=== PATIENT | male | born 1945 | race Caucasian/White ===

== ENCOUNTER 2020-05-08 09:55 | Outpatient (CLI) | payer MEDICARE, MEDICAID, SELFPAY ==
--- NOTE | ~2020-05-08 | US_ITS ---
EXAMINATION: US aorta [facility] DATE: 05/08/2020 10:33 INDICATION: Abdominal aortic aneurysm. TECHNIQUE: Grayscale, color Doppler, and pulsed Doppler images of the aorta and common iliac arteries were obtained. COMPARISON: CT abdomen and pelvis 03/27/2018 FINDINGS: The aorta demonstrates a 3.3 cm fusiform infrarenal aortic aneurysm with stent graft. The right commo n iliac artery measures 1.3 cm. The left common iliac artery measures 1.3 cm. IMPRESSION: 1. 3.3 cm fusiform infrarenal aortic aneurysm with stent graft. Reviewed, dictated and finalized at location A. [employer]
== END 2020-05-08 09:56 | disposition home or self-care (01) ==
PROVIDERS: Family Provider Family Medicine; PCP Physician Assistant; Visit Provider Internal Medicine Cardiovascular Disease
DX: Z72.0 Tobacco use (principal); I70.1 Atherosclerosis of renal artery
CPT/HCPCS: 76706

== ENCOUNTER 2020-08-29 10:56 | Outpatient (CLI) | payer MEDICARE, MEDICAID, SELFPAY ==
--- NOTE | ~2020-08-29 | US_ITS ---
EXAMINATION: US carotid duplex BI DATE: 08/29/2020 11:37 INDICATION: Right parietal and occipital lobe infarcts. Right carotid stenosis. TECHNIQUE: Grayscale, color Doppler, and pulsed Doppler images of the cervical carotid arteries were obtained. The degree of vessel stenosis is placed in one of the following categories: normal, <50%, 5 0-69%, >=70% but less than near-occlusion, near-occlusion, or total occlusion. Note that percent sten osis relative to normal distal artery lumen diameter is indirectly measured from velocity measurement s as described by Dio, et al. Radiology 2003; [id number]. COMPARISON: Ultrasound 03/11/2019 FINDINGS: RIGHT: The right common carotid artery (CCA) peak systolic velocity (PSV) is 74 cm/s. The right internal car otid artery (ICA) PSV is 113 cm/s. The right ICA end-diastolic velocity (EDV) is 24 cm/s. The right I CA/CCA PSV ratio is 1.5. Grayscale and color Doppler images yield an estimate of <50% diameter reduct ion from plaque in the ICA. There is antegrade flow in the right vertebral artery. LEFT: The left CCA PSV is 69 cm/s. The left ICA PSV is 109 cm/s. The left ICA EDV is 23 cm/s. The left ICA/ CCA PSV ratio is 1.8. Grayscale and color Doppler images yield an estimate of <50% diameter reduction from plaque in the ICA. There is antegrade flow in the left vertebral artery. IMPRESSION: 1. <50% stenosis in the right internal carotid artery. 2. <50% stenosis in the left internal carotid artery. Reviewed, dictated and finalized at location B.
== END 2020-08-29 10:57 | disposition home or self-care (01) ==
PROVIDERS: PCP Physician Assistant; Visit Provider Internal Medicine Cardiovascular Disease
DX: I65.23 Occlusion and stenosis of bilateral carotid arteries (principal)
CPT/HCPCS: 93880

== ENCOUNTER 2021-09-06 10:30 | Outpatient (CLI) | payer MEDICARE, SELFPAY ==
--- NOTE | ~2021-09-06 | US_ITS ---
EXAMINATION: US aorta DATE: 09/06/2021 11:26 CDT INDICATION: Abdominal aortic aneurysm without rupture TECHNIQUE: Grayscale, color Doppler, and pulsed Doppler images of the aorta and common iliac arteries were obtained. COMPARISON: None. FINDINGS: The proximal aorta is not well visualized due to bowel gas. The mid abdominal aorta measures 3.1 cm g reatest sagittal dimension. The distal aorta measures 2.4 cm greatest sagittal dimension. The right c ommon internal iliac artery measures 1.2 cm. The left common iliac artery measures 1.4 cm. IMPRESSION: 1. Infrarenal abdominal aortic aneurysm measuring 3.1 cm. Reviewed, dictated and finalized at location A.
== END 2021-09-06 10:31 | disposition home or self-care (01) ==
LOC: ANHIMG 10:34
PROVIDERS: PCP Physician Assistant; Visit Provider Internal Medicine Cardiovascular Disease
DX: I71.4 Abdominal aortic aneurysm, without rupture (principal)
CPT/HCPCS: 76775

== ENCOUNTER 2023-08-17 09:39 | Outpatient (CLI) | payer MEDICARE, SELFPAY ==
--- NOTE | ~2023-08-17 | US_ITS ---
EXAMINATION: US aorta DATE: 08/17/2023 10:58 INDICATION: Infrarenal abdominal aortic aneurysm with prior stenting TECHNIQUE: Grayscale, color Doppler, and pulsed Doppler images of the aorta and common iliac arteries were obtained. COMPARISON: None. FINDINGS: The proximal aorta is obscured by shadowing bowel gas. The mid aorta measures 2.5 cm. The distal aort a measures 2.8 cm tapering to 2.4 cm. The right common iliac artery measures 1.1 cm. The left common iliac artery measures 1.2 cm. IMPRESSION: 1. Mildly ectatic infrarenal aorta measuring up to 2.8 cm. Reviewed, dictated and finalized at location B.
== END 2023-08-17 09:40 | disposition home or self-care (01) ==
PROVIDERS: PCP Physician Assistant; Visit Provider Nurse Practitioner Adult Health
DX: I71.43 Infrarenal abdominal aortic aneurysm, without rupture (principal)
CPT/HCPCS: 76775

== ENCOUNTER 2023-12-17 11:05 | Outpatient (CLI) | payer MEDICARE, SELFPAY ==
--- NOTE | ~2023-12-17 | XR_ITS ---
EXAMINATION: XR foot LT min 3V DATE: 12/17/2023 11:34 INDICATION: Acute onset calcaneal pain at the left foot after stepping on a rock. TECHNIQUE: Dorsoplantar, two oblique and lateral views of the left foot were obtained. COMPARISON: None. FINDINGS: Bone alignment is normal. No fracture. Mild osteoarthritis at the first metatarsophalangeal and a few tarsometatarsal and interphalangeal joints. Soft tissues are unremarkable. IMPRESSION: 1. 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 No acute osseous abnormality. Reviewed, dictated and finalized at location B. IMPRESSION: 1. 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 No acute osseous abn ormality.
== END 2023-12-17 11:06 | disposition home or self-care (01) ==
LOC: ANHIMG 11:20
PROVIDERS: PCP Physician Assistant; Visit Provider Physician Assistant
DX: R52 Pain, unspecified (principal); M19.072 Primary osteoarthritis, left ankle and foot
CPT/HCPCS: 73630